=== PATIENT | male | born 1965 | race Caucasian/White ===

== ENCOUNTER 2018-03-09 12:29 | Emergency (ER) | payer BC ==
[2018-03-09] MEDS ORDERED: NA CHLORIDE 0.9% 2,000 ML ONE (12:39)
[2018-03-09] MEDS ORDERED: MAGNE/ALUM HYDROXD 30 ML UCUP ONE (15:27)
--- NOTE | 2018-03-09 15:55 | EDPHYS ---
Physician Documentation [facility] Name: Javi Cox Age: 52 yrs Sex: Male : 1965 Arrival Date: 03/09/2018 Time: 12:30 Bed 2 Private MD: ED Physician Chaz Robert HPI: 03/09 12:32 This 52 yrs old Male presents to ER via Unassigned with complaints of AMS. rn 12:32 The patient presents with decreased mental status, decreased responsiveness. Onset: The rn symptoms/episode began/occurred just prior to arrival. Possible causes: drug use, marijuana. Current symptoms: In the emergency department the patient's symptoms have improved. The patient has not experienced similar symptoms in the past. The patient has not recently seen a physician. Reports feeling fine earlier today, is daily drinker, has had 4-5 beers so far, was with friends, smoking weed, instantly felt weak and saw a black tunnel, EMS found him minimally responsive, woke up with 2mg narcan, and improved with fluids, patient denies current symptoms, no vomiting/diarrhea/chest pain/abd pain. . Historical: - Allergies: 12:38 No Known Allergies; ph - Home Meds: 12:38 amlodipine oral [Active]; ph - PMHx: 12:38 Hypertension; ph - Immunization history:: Adult Immunizations unknown. - Family history:: not pertinent. - Social history:: Smoking status: Patient uses tobacco products, smokes two packs cigarettes per day. Patient uses alcohol, on a daily basis. street drugs, marijuana. - Ebola Screening: : No symptoms or risks identified at this time. - Hospitalizations: : No recent hospitalization is reported. ROS: 12:32 Constitutional: Negative for fever, chills, and weight loss, Eyes: Negative for injury, rn pain, redness, and discharge, Neck: Negative for injury, pain, and swelling, Cardiovascular: Negative for chest pain, palpitations, and edema, Respiratory: Negative for shortness of breath, cough, wheezing, and pleuritic chest pain, Abdomen/GI: Negative for abdominal pain, nausea, vomiting, diarrhea, and constipation, MS/Extremity: Negative for injury and deformity, Skin: Negative for injury, rash, and discoloration, Neuro: Negative for headache, weakness, numbness, tingling, and seizure. Exam: 12:32 Constitutional: This is a well developed, well nourished patient who is awake, alert, rn and in no acute distress. Legs crossed and arms above his head. Head/Face: Normocephalic, atraumatic. Eyes: Pupils equal round and reactive to light, extra-ocular motions intact. Lids and lashes normal. Conjunctiva and sclera are non-icteric and not injected. Cornea within normal limits. Periorbital areas with no swelling, redness, or edema. ENT: dry MM Cardiovascular: tachycardic, regular Respiratory: Lungs have equal breath sounds bilaterally, clear to auscultation and percussion. No rales, rhonchi or wheezes noted. No increased work of breathing, no retractions or nasal flaring. Abdomen/GI: Soft, non-tender, with normal bowel sounds. No distension or tympany. No guarding or rebound. No evidence of tenderness throughout. MS/ Extremity: Pulses equal, no cyanosis. Neurovascular intact. Full, normal range of motion. Equal circumference. Neuro: Awake and alert, GCS 15, oriented to person, place, time, and situation. Cranial nerves II-XII grossly intact. Motor strength 5/5 in all extremities. Sensory grossly intact. Cerebellar exam normal. Vital Signs: 12:35 BP 98 / 66; Pulse 106; Resp 18; Temp 98.3; Pulse Ox 93% on R/A; Weight 72.57 kg; Height ph 5 ft. 6 in. (167.64 cm); Pain 0/10; 13:26 BP 99 / 69; Pulse 107; Resp 18; Pulse Ox 95% on R/A; ph 14:21 BP 113 / 74; Pulse 106; Resp 18; Pulse Ox 98% on R/A; la1 15:30 BP 129 / 88; Pulse 107; Resp 18; Pulse Ox 95% on R/A; ph 12:35 Body Mass Index 25.82 (72.57 kg, 167.64 cm) ph MDM: 12:30 Patient medically screened. rn 15:50 Differential Diagnosis: electrolyte abnormality, volume depletion, drug reaction, ETOH. rn Data reviewed: vital signs, nurses notes, lab test result(s), EKG, and as a result, I will discharge patient. Counseling: I had a detailed discussion with the patient and/or guardian regarding: the historical points, exam findings, and any diagnostic results supporting the discharge/admit diagnosis, lab results, the need for outpatient follow up, to return to the emergency department if symptoms worsen or persist or if there are any questions or concerns that arise at home. Response to treatment: the patient's symptoms have markedly improved after treatment, the patient's condition has returned to base line, the patient is now symptom free, patient is well hydrated. and as a result, I will discharge patient. Special discussion: I discussed with the patient/guardian in detail that at this point there is no indication for admission to the hospital. It is understood, however, that if the symptoms persist or worsen the patient needs to return immediately for re-evaluation. ED course: Counseled against drug use, improved, eating, likely result from ETOH and laced marijuana. Observed here for 3.5 hours, no need for redose of narcan. . 03/09 12:31 Order name: ETOH Level; Complete Time: 13:26 rn 03/09 12:31 Order name: IV Start; Complete Time: 12:40 rn 03/09 12:31 Order name: EKG; Complete Time: 12:31 rn 03/09 12:31 Order name: Accucheck; Complete Time: 12:40 rn 03/09 12:31 Order name: EKG - Nurse/Tech; Complete Time: 12:40 rn Administered Medications: 12:40 Drug: NS 0.9% 1000 ml Route: IV; Rate: 1000 ml; Site: right forearm; la1 15:44 Follow up: Response: No adverse reaction; Blood pressure is elevated; IV Status: ph Completed infusion 12:40 Drug: NS 0.9% 1000 ml Route: IV; Rate: 1000 ml; Site: left forearm; la1 16:10 Follow up: Response: No adverse reaction; IV Status: Completed infusion ph 15:44 Drug: Maalox Suspension (200 mg-200 mg-20 mg/5 mL) 30 ml Route: PO; ph 16:10 Follow up: Response: No adverse reaction ph Point of Care Testing: Blood Glucose: 12:40 Blood Glucose: 82 mg/dL; ph Ranges: Critical Glucose Levels:Adult <50 mg/dl or >400 mg/dl <40 mg/dl or >180 mg/dl Disposition: 03/09/18 15:54 Discharged to Home. Impression: Accidental overdose of recreational drug. - Condition is Stable. - Discharge Instructions: Drug Overdose. - Medication Reconciliation Form, Thank You Letter, Antibiotic Education, Prescription Opioid Use form. - Follow up: Private Physician; When: As needed; Reason: Recheck today's complaints, Re-evaluation by your physician. - Problem is new. - Symptoms have improved. Signatures: Dispatcher [employer] EDMS Chaz Robert MD MD rn Attema, Lee, RN RN laKatelin Jefferson RN RN ph Corrections: (The following items were deleted from the chart) 16:12 15:54 03/09/2018 15:54 Discharged to Home. Impression: Accidental overdose of ph recreational drug. Condition is Stable. Forms are Medication Reconciliation Form, Thank You Letter, Antibiotic Education, Prescription Opioid Use. Follow up: Private Physician; When: As needed; Reason: Recheck today's complaints, Re-evaluation by your physician. Problem is new. Symptoms have improved. rn
--- NOTE | 2018-03-09 15:55 | ER ---
Nurse's Notes [facility] Name: Javi Cox Age: 52 yrs Sex: Male : 1965 Arrival Date: 03/09/2018 Time: 12:30 Bed 2 Private MD: Diagnosis: Accidental overdose of recreational drug Presentation: 03/09 12:30 Presenting complaint: EMS states: Pt was found sitting on porch, unresponsive to ph painful stimuli w/ snoring respirations, also unresponsive to ammonia, pupils noted to be pinpoint, 2 mg intranasal Narcan administered, pt began to regain consciousness shortly after, admits to smoking marijuana prior to losing consciousness, denies use of opioids. Transition of care: patient was not received from another setting of care. Onset of symptoms was March 09, 2018. Risk Assessment: Do you want to hurt yourself or someone else? Patient reports no desire to harm self or others. Initial Sepsis Screen: Does the patient meet any 2 criteria? No. Patient's initial sepsis screen is negative. Does the patient have a suspected source of infection? No. Patient's initial sepsis screen is negative. Care prior to arrival: Medication(s) given: Normal saline infusion, 500 mL, IV initiated. 18 GA, in the left forearm. 12:30 Method Of Arrival: EMS: [facility] ph 12:30 Acuity: PHILLY 3 ph Historical: - Allergies: 12:38 No Known Allergies; ph - Home Meds: 12:38 amlodipine oral [Active]; ph - PMHx: 12:38 Hypertension; ph - Immunization history:: Adult Immunizations unknown. - Family history:: not pertinent. - Social history:: Smoking status: Patient uses tobacco products, smokes two packs cigarettes per day. Patient uses alcohol, on a daily basis. street drugs, marijuana. - Ebola Screening: : No symptoms or risks identified at this time. - Hospitalizations: : No recent hospitalization is reported. Screenin:37 Abuse screen: Denies threats or abuse. Denies injuries from another. Nutritional ph screening: No deficits noted. Tuberculosis screening: No symptoms or risk factors identified. Fall Risk None identified. Assessment: 12:36 General: Appears in no apparent distress. comfortable, Behavior is calm, cooperative, ph appropriate for age. Pain: Denies pain. Neuro: Level of Consciousness is awake, alert, obeys commands, Oriented to person, place, time, situation. Cardiovascular: Denies chest pain, lightheadedness, nausea, shortness of breath, Capillary refill < 3 seconds in bilateral fingers Patient's skin is warm and dry. Respiratory: Airway is patent Respiratory effort is even, unlabored, Respiratory pattern is regular, symmetrical, Denies shortness of breath. GI: No signs and/or symptoms were reported involving the gastrointestinal system. Derm: Skin is intact, Skin is pink, warm \T\ dry. Musculoskeletal: Circulation, motion, and sensation intact. Range of motion: intact in all extremities. 13:25 Reassessment: Patient appears in no apparent distress at this time. Patient and/or ph family updated on plan of care and expected duration. Pain level reassessed. Patient is alert, oriented x 3, equal unlabored respirations, skin warm/dry/pink. Pt asleep w/ even, unlabored respirations, awakens easily to verbal stimuli, denies pain or SOB at this time, given sandwich and chips, tolerating well. 14:36 Reassessment: Patient appears in no apparent distress at this time. No changes from la1 previously documented assessment. Patient and/or family updated on plan of care and expected duration. Pain level reassessed. Patient is alert, oriented x 3, equal unlabored respirations, skin warm/dry/pink. 15:43 Reassessment: Patient appears in no apparent distress at this time. Patient and/or ph family updated on plan of care and expected duration. Pain level reassessed. Patient is alert, oriented x 3, equal unlabored respirations, skin warm/dry/pink. Pt c/o heartburn, ERP notified, see MAR. Vital Signs: 12:35 BP 98 / 66; Pulse 106; Resp 18; Temp 98.3; Pulse Ox 93% on R/A; Weight 72.57 kg; Height ph 5 ft. 6 in. (167.64 cm); Pain 0/10; 13:26 BP 99 / 69; Pulse 107; Resp 18; Pulse Ox 95% on R/A; ph 14:21 BP 113 / 74; Pulse 106; Resp 18; Pulse Ox 98% on R/A; la1 15:30 BP 129 / 88; Pulse 107; Resp 18; Pulse Ox 95% on R/A; ph 12:35 Body Mass Index 25.82 (72.57 kg, 167.64 cm) ph ED Course: 12:30 Patient arrived in ED. ph 12:30 Chaz Robert MD is Attending Physician. rn 12:35 Triage completed. ph 12:36 Arm band placed on. ph 12:39 Maintain EMS IV. Dressing intact. Good blood return noted. Site clean \T\ dry. Gauge \T\ ph site: 18 LFA. 12:42 EKG done, by ED staff, reviewed by Chaz Robert MD. em1 13:25 Katelin Castrejon, RN is Primary Nurse. ph 13:27 Patient has correct armband on for positive identification. Placed in gown. Bed in low ph position. Call light in reach. Side rails up X 1. court monitor on. Pulse ox on. NIBP on. Warm blanket given. 16:11 No provider procedures requiring assistance completed. IV discontinued, intact, ph bleeding controlled, No redness/swelling at site. Pressure dressing applied. Administered Medications: 12:40 Drug: NS 0.9% 1000 ml Route: IV; Rate: 1000 ml; Site: right forearm; la1 15:44 Follow up: Response: No adverse reaction; Blood pressure is elevated; IV Status: ph Completed infusion 12:40 Drug: NS 0.9% 1000 ml Route: IV; Rate: 1000 ml; Site: left forearm; la1 16:10 Follow up: Response: No adverse reaction; IV Status: Completed infusion ph 15:44 Drug: Maalox Suspension (200 mg-200 mg-20 mg/5 mL) 30 ml Route: PO; ph 16:10 Follow up: Response: No adverse reaction ph Point of Care Testing: Blood Glucose: 12:40 Blood Glucose: 82 mg/dL; ph Ranges: Outcome: 15:54 Discharge ordered by . rn 16:11 Discharged to home ambulatory, with family. ph 16:11 Condition: improved 16:11 Discharge instructions given to patient, Instructed on discharge instructions, follow up and referral plans. Demonstrated understanding of instructions, follow-up care. 16:12 Patient left the ED. ph Signatures: Chaz Robert MD MD rn Martinez, Eric em1 Anthony Chen RN RN la1 Katelin Castrejon RN RN ph
--- NOTE | 2018-03-10 10:23 | EKG ---
Test Date: 2018-03-09 Test Time: 12:36:32 Plasma Processing Centrifuge Operator: WESLY MEASUREMENT RESULTS: Intervals: Rate: 106 AZ: 162 QRSD: 74 QT: 320 QTc: 425 [place]ila: P: 73 AZ: 162 QRS: 64 T: 65 INTERPRETIVE STATEMENTS: Sinus tachycardia Septal infarct, age undetermined Abnormal ECG Compared to ECG 11/02/1997 11:58:00 Myocardial infarct finding now present Sinus rhythm no longer present Electronically Signed On 03-10-18 10:21:32 CDT by Guanaco Allison
== END 2018-03-09 16:12 | disposition home or self-care (01) ==
LOC: ER 12:29
DX: T50.901A Poisoning by unspecified drugs, medicaments and biological substances, accidental (unintentional), initial encounter (principal); F17.210 Nicotine dependence, cigarettes, uncomplicated; Y92.9 Unspecified place or not applicable
CPT/HCPCS: 36415; 80320; 82962; 93005; 96360; 96361; 99284; J7030

== ENCOUNTER 2019-10-26 23:27 | Emergency (ER) | payer SELFPAY ==
[2019-10-26] MEDS ORDERED: NA CHLORIDE 0.9% 1,000 ML ONE (23:41)
[2019-10-26 23:54] LABS: Absolute Lymphocytes (CBC) 2.4 K/uL (0.7-4.9); Basophils % 1.2 % (0-1.3); Hematocrit 44.3 % (39.6-49.0); Lymphocytes % 17.5 % (15.3-44.8); MPV 7.1 fL (7.6-11.3); RBC Red Blood Cell Count 4.53 M/uL (4.33-5.43)
[2019-10-27 00:07] LABS: Potassium 3.6 mmol/L (3.5-5.1)
[2019-10-27] MEDS ORDERED: MORPHINE 4 MG/ML SYR ONE ×2 (00:10→02:18)
[2019-10-27] MEDS ORDERED: LORazepam 2 MG/ML VIAL ONE (00:19)
[2019-10-27] MEDS ORDERED: CEFAZOLIN/SWI 1gm 1 GM/10 ML SYR ONE (00:24)
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
[2019-10-27] MEDS ORDERED: NA CHLORIDE 0.9% 1,000 ML ONE (02:43)
[2019-10-27 03:01] VITALS: TEMP 97.1
[2019-10-27 03:06] VITALS: BP 120/92; O2SAT 99
--- NOTE | 2019-10-27 09:09 | RAD REPORT ---
[facility] CLINICAL HISTORY: Pneumothorax COMPARISON: October 25 FINDINGS: Left chest tube has been inserted with its tip in the upper left hemithorax. Significant p neumothorax is not seen. Left rib fractures and subcutaneous emphysema along the left lateral chest wall again demonstrated Lungs appear clear of acute infiltrate
--- NOTE | 2019-10-27 09:11 | RAD REPORT ---
[facility] DES[facility]49 [facility] CLINICAL HISTORY: Chest pain FINDINGS: Extensive subcutaneous emphysema along the left lateral chest wall Several moderately displaced left rib fractures Evaluation for pneumothorax is limited secondary to supine positioning and the left lung apex not inc luded in the field of view. CT chest obtained on the same demonstrates a small to moderate left pneum othorax Lungs appear clear of acute infiltrate. Heart is normal size
--- NOTE | 2019-10-27 09:46 | RAD REPORT ---
EXAM DESCRIPTION: CT - Head C Spine Cap W Con - 10/27/2019 4:18 am EXAM DESCRIPTION: CT HEAD WITHOUT IV CONTRAST CLINICAL HISTORY: Trauma TECHNIQUE: Contiguous axial CT images obtained through the brain without IV contrast. Coronal and sa gittal reformatted images were provided. This exam was performed according to our departmental dose-optimization program, which includes autom ated exposure control, adjustment of the mA and/or kV according to patient size and/or use of iterati ve reconstruction technique. COMPARISON: None available for comparison FINDINGS: Brain: Mild cerebral atrophy. Mild bilateral periventricular and subcortical white matter hypodensity which is nonspecific and can be seen in the clinical setting of chronic microvascular ang iopathy. No focal mass effect. Holley-white matter differentiation is within normal limits. No hemorrha ge. Ventricles: No ventriculomegaly or midline shift. Extra-axial spaces: No extra-axial collection or hemorrhage. Paranasal sinuses and mastoid air cells: Right maxillary sinus hemorrhagic fluid. Left mastoid air ce ll sclerosis.. Vessels: Unremarkable Bones: Mildly depressed right orbital floor fracture. Soft tissues: Moderate right periorbital soft tissue swelling. Small amount of extraconal hemorrhage inferiorly on the right. The orbital globe appears grossly intact. IMPRESSION: 1. No acute intracranial or extra-axial abnormality. 2. Right orbital floor fracture. Small amount of adjacent extraconal hemorrhage. The orbital globe appears grossly intact. 3. Other findings as above. EXAM DESCRIPTION: CT CERVICAL SPINE WITHOUT IV CONTRAST CLINICAL HISTORY: Trauma TECHNIQUE: Contiguous axial CT images obtained through the cervical spine without IV contrast. Coron al and sagittal reformatted images also provided. This exam was performed according to our departmental dose-optimization program, which includes autom ated exposure control, adjustment of the mA and/or kV according to patient size and/or use of iterati ve reconstruction technique. COMPARISON: None available for comparison FINDINGS: Vertebra: Developmental nonunion at the posterior midline C1 arch. No acute fracture or pierce bluxation. Disc spaces: Moderate multilevel degenerative changes most pronounced at C5-C6 and C6-C7. The central thecal sac is mildly narrowed at these levels. Soft tissues: Left neck soft tissue gas. IMPRESSION: No acute cervical spine injury. EXAM DESCRIPTION: CT CHEST WITH IV CONTRAST CLINICAL HISTORY: PAIN TECHNIQUE: Contiguous axial images obtained through the chest following the uneventful administratio n of IV contrast. Coronal and sagittal reformatted images provided. This exam was performed according to our departmental dose-optimization program, which includes autom ated exposure control, adjustment of the mA and/or kV according to patient size and/or use of iterati ve reconstruction technique. COMPARISON: No prior exams provided for comparison. FINDINGS: Lungs: Right lower lobe calcified granuloma. Mild left basilar consolidation. Airways are patent. Pleura: Small to moderate left pneumothorax and small left hemothorax. Heart and pericardium: The heart is normal in size. Coronary artery calcification. No pericardial eff usion. Mediastinum and donny: Calcified mediastinal lymph node. No pathologically enlarged lymph nodes. Lower neck and chest wall: Extensive left chest wall soft tissue gas. Vessels: Mild atherosclerotic disease. No thoracic aortic aneurysm. Bones: Left posterior 2nd through 11th, left lateral/posterior lateral 3rd through 10th rib fractures , many of which are comminuted and displaced. Minimally angulated right lateral 7th and 8th and minim ally displaced right posterior lateral 9th rib fractures. Multilevel spondylosis. IMPRESSION: 1. Left 2nd through 11th and right 7th through 9th rib fractures. 2. Small to moderate left pneumothorax and small left hemothorax. 3. Mild left basilar consolidation (atelectasis and/or infiltrate and/or contusion). 4. Other findings as above. EXAM DESCRIPTION: CT ABDOMEN PELVIS WITH IV CONTRAST CLINICAL HISTORY: Trauma TECHNIQUE: Contiguous axial images obtained through the abdomen and pelvis following the uneventful administration of IV contrast. Coronal and sagittal reformatted images were provided. This exam was performed according to our departmental dose-optimization program, which includes autom ated exposure control, adjustment of the mA and/or kV according to patient size and/or use of iterati ve reconstruction technique. COMPARISON: None available for comparison. FINDINGS: Liver: The liver is diffusely low in density compatible with steatosis. Gallbladder and biliary system: Unremarkable Pancreas: Unremarkable Spleen: Unremarkable Adrenals: Unremarkable Kidneys: Normal renal cortical enhancement. No calculi. No hydronephrosis. Bowel: Colonic diverticula without adjacent inflammatory change. No obstruction. No appreciable mucos al thickening. Appendix: Normal caliber appendix. No findings to suggest acute appendicitis. Urinary bladder: The urinary bladder is distended. Reproductive: Unremarkable as visualized Lymph nodes: No pathologically enlarged lymph nodes. Peritoneum: No focal fluid collection. No free air. Vessels: Mild to moderate atherosclerotic disease. No abdominal aortic aneurysm. Abdominal wall: Left abdominal wall soft tissue gas. Small fat-containing umbilical and bilateral ing uinal hernias. Bones: 4 nonrib-bearing lumbar-type vertebra. Grade 1 anterolisthesis of L4 on S1. Multilevel spondyl osis. No acute fracture. IMPRESSION: 1. No evidence for hollow or solid organ injury. 2. Other findings as above. THIS REPORT CONTAINS FINDINGS THAT MAY BE CRITICAL TO PATIENT CARE: The findings were verbally discu ssed via telephone conference with Dr. WONG SIDDIQUI on 10/27/2019 1:00 AM CDT. The results were acknowl edged and understood. Electronically signed by: Henry Green MD 10/27/2019 1:00 AM CDT Due to temporary technical issues with the PACS/Fluency reporting system, reports are being signed by the in house radiologist as a courtesy to ensure prompt reporting. The interpreting radiologist is f ully responsible for the content of the report.
== END 2019-10-27 02:53 | disposition short-term general hospital (02) ==
LOC: ER 23:27
PROC: 0W9B30Z Drainage of Left Pleural Cavity with Drainage Device, Percutaneous Approach (ICD-10-PCS; principal; 2019-10-27)
DX: S27.2XXA Traumatic hemopneumothorax, initial encounter (principal); S22.43XA Multiple fractures of ribs, bilateral, initial encounter for closed fracture; S02.30XA Fracture of orbital floor, unspecified side, initial encounter for closed fracture; S01.81XA Laceration without foreign body of other part of head, initial encounter; S27.329A Contusion of lung, unspecified, initial encounter; V59.40XA Driver of pick-up truck or van injured in collision with unspecified motor vehicles in traffic accident, initial encounter; I10 Essential (primary) hypertension; F17.220 Nicotine dependence, chewing tobacco, uncomplicated
CPT/HCPCS: 36415; 70450; 71045; 71260; 72125; 74177; 80048; 80320; 85025; 86850; 86900; 86901; 96361; 96365; 96375; 99291; 99292; J0690; J7030; Q9967